=== PATIENT | female | born 1990 | race Caucasian/White ===

== ENCOUNTER 2017-08-10 17:53 | Inpatient (IN) | payer BC ==
[2017-08-10] MEDS ORDERED: Misoprostol 200 MCG Tab PO PRN (18:03)
[2017-08-10] MEDS ORDERED: Sodium Chloride 0.9% 2.5 ML Syringe FLUSH PRN (18:03)
[2017-08-10] MEDS ORDERED: Methylergonovine 0.2 MG/1 ML Amp IM PRN (18:03)
[2017-08-10] MEDS ORDERED: Lidocaine 1% 50 ML MDV INJECT PRN (18:03)
[2017-08-10] MEDS ORDERED: Water For Irrigation,Sterile 1,000 ML Container IRR PRN (18:03)
[2017-08-10] MEDS ORDERED: Nalbuphine 10 MG/1 ML Vial IVPUSH PRN (18:03)
[2017-08-10] MEDS ORDERED: Ampicillin 2 GM in Sodium Chloride 0.9% 100 ML IV ONE (18:03)
[2017-08-10] MEDS ORDERED: Butorphanol 1 MG/ML SDV IVPUSH PRN (18:03)
[2017-08-10] MEDS ORDERED: Sodium Chloride 0.9% 10 ML Syringe FLUSH PRN (18:03)
[2017-08-10] MEDS ORDERED: Carboprost Tromethamine 250 MCG/1 ML Amp IM PRN (18:03)
[2017-08-10] MEDS ORDERED: Misoprostol 25 MCG (1/4 of 100 MCG) Tab VAG PRN (18:08)
[2017-08-10] MEDS ORDERED: Terbutaline 1 MG/ML SDV SUBCUT PRN (18:08)
[2017-08-10] MEDS ORDERED: Misoprostol 25 MCG (1/4 of 100 MCG) Tab VAG SCH (18:15)
[2017-08-10] MEDS ORDERED: Oxytocin/0.9 % Sodium Chloride 30 UNIT/500 ML BAG IV SCH ×3 (18:15→20:45)
[2017-08-10] MEDS: Lactated Ringers 1,000 ML IV SCH (18:23)
[2017-08-10] MEDS: Ampicillin 1 GM in Sodium Chloride 0.9% 50 ML IV SCH (22:27)
[2017-08-11] MEDS: Lactated Ringers 1,000 ML IV SCH ×3 (00:17→02:43)
--- NOTE | 2017-08-11 01:51 | PCM.PREANE ---
Preanesthetic Assessment - Anesthesia/Transfusion/Family Hx Anesthesia History: Prior Anesthesia Without Reaction Family History of Anesthesia Reaction: No Transfusion History: No Prior Transfusion(s) - Review of Systems Other: Reports: None - Physical Assessment Height: 5 ft 7 in Weight: 85.275 kg ASA Class: 2 Mental Status: Alert & Oriented x3 Airway Class: Mallampati = 1 Dentition: Reports: Normal Dentition Thyro-Mental Finger Breadths: 3 Mouth Opening Finger Breadths: 3 ROM/Head Extension: Full - Lab Values: Laboratory Last Values WBC 8.49 K/uL (4.0-11.0) 08/10/17 18:23 RBC 4.02 M/uL (4.30-5.90) L 08/10/17 18:23 Hgb 12.2 g/dL (12.0-16.0) 08/10/17 18:23 Hct 35.6 % (36.0-46.0) L 08/10/17 18:23 MCV 88.6 fL (80.0-98.0) 08/10/17 18:23 MCH 30.3 pg (27.0-32.0) 08/10/17 18:23 MCHC 34.3 g/dL (31.0-37.0) 08/10/17 18:23 RDW Std Deviation 45.3 fl (28.0-62.0) 08/10/17 18:23 RDW Coeff of Trang 14 % (11.0-15.0) 08/10/17 18:23 Plt Count 246 K/uL (150-400) 08/10/17 18:23 MPV 10.00 fL (7.40-12.00) 08/10/17 18:23 Nucleated RBC % 0.0 /100WBC 08/10/17 18:23 Nucleated RBCs # 0 K/uL 08/10/17 18:23 Blood Type O NEGATIVE 08/10/17 18:23 Antibody Screen NEGATIVE 08/10/17 18:23 - Allergies Allergies/Adverse Reactions: Allergies Allergy/AdvReac Type Severity Reaction Status Date / Time cefixime [From Suprax] Allergy Nausea Verified 12/31/14 12:28 - Blood Blood Available: Yes Product(s) Available: PRBC - Acknowledgements Anesthesia Type Planned: Epidural Pt an Appropriate Candidate for the Planned Anesthesia: Yes Alternatives and Risks of Anesthesia Discussed w Pt/Guardian: Yes Pt/Guardian Understands and Agrees with Anesthesia Plan: Yes PreAnesthesia Questionnaire 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 Musculoskeletal Surgical History: Reports: Other (See Below) Other Musculoskeletal Surgeries/Procedures:: Right wrist surgery in 1994. - SUBSTANCE USE Smoking Status *Q: Never Smoker Tobacco Use Within Last Twelve Months: No Second Hand Smoke Exposure: No Recreational Drug Use History: No - CURRENT (IN HOUSE) MEDS Current Meds: Current Medications Butorphanol Tartrate (Stadol) 1 mg IVPUSH Q1H PRN PRN Reason: Pain Carboprost Tromethamine (Hemabate Ds) 250 mcg IM ASDIRECTED PRN PRN Reason: Post Hemorrhage Ampicillin Sodium 1 gm/ Sodium (Chloride) 50 mls @ 100 mls/hr IV Q4H ALEXANDREA Last Admin: 08/10/17 22:27 Dose: 100 mls/hr Lactated Ringer's (Ringers, Lactated) 1,000 mls @ 150 mls/hr IV ASDIRECTED ALEXANDREA Last Admin: 08/11/17 01:25 Dose: 500 mls/hr Oxytocin/Sodium Chloride (Oxytocin 30 Unit/500 Ml-Ns) 30 unit in 500 mls @ 999 mls/hr IV TITRATE ALEXANDREA Oxytocin/Sodium Chloride (Oxytocin 30 Unit/500 Ml-Ns) 30 unit in 500 mls @ 2 mls/hr IV TITRATE ALEXANDREA; 2 MUNITS/MIN PRN Reason: Protocol Oxytocin/Sodium Chloride (Oxytocin 30 Unit/500 Ml-Ns) 30 unit in 500 mls @ 2 mls/hr IV TITRATE ALEXANDREA; 2 MUNITS/MIN PRN Reason: Protocol Lidocaine HCl (Xylocaine 1%) 50 ml INJECT .ONCE PRN PRN Reason: Laceration repair Methylergonovine Maleate (Methergine) 0.2 mg IM ASDIRECTED PRN PRN Reason: Post Hemorrhage Misoprostol (Cytotec) 200 mcg PO .ONCE PRN PRN Reason: Post Hemorrhage Misoprostol (Cytotec) 25 mcg VAG .ONCE ALEXANDREA Misoprostol (Cytotec) 25 mcg VAG Q6HR PRN PRN Reason: Cervical Ripening Nalbuphine HCl (Nubain) 10 mg IVPUSH Q1H PRN PRN Reason: Pain (severe 7-10) Sodium Chloride (Saline Flush) 10 ml FLUSH ASDIRECTED PRN PRN Reason: Keep Vein Open Sodium Chloride (Saline Flush) 2.5 ml FLUSH ASDIRECTED PRN PRN Reason: Keep Vein Open Sterile Water (Sterile Water For Irrigation) 1,000 ml IRR ASDIRECTED PRN PRN Reason: delivery Terbutaline Sulfate (Brethine) 0.25 mg SUBCUT ASDIRECTED PRN PRN Reason: Tacysystole Discontinued Medications Ampicillin Sodium 2 gm/ Sodium (Chloride) 100 mls @ 200 mls/hr IV ONETIME ONE Stop: 08/10/17 18:32 Last Admin: 08/10/17 18:37 Dose: 200 mls/hr
[2017-08-11] MEDS ORDERED: Ropivacaine 0.2% 2 MG/ML 20 ML SDV ONE (01:52)
[2017-08-11] MEDS ORDERED: fentaNYL 100 MCG/2 ML SDV ONE (01:52)
[2017-08-11] MEDS ORDERED: Ropivacaine HCl/PF 100 ML ONE (01:52)
[2017-08-11] MEDS: Ampicillin 1 GM in Sodium Chloride 0.9% 50 ML IV SCH ×2 (02:00→06:12)
[2017-08-11] MEDS ORDERED: Ibuprofen 800 MG Tab PO PRN (07:44)
[2017-08-11] MEDS ORDERED: Lanolin 100% Cream 7 GM Tube TOP PRN (07:44)
[2017-08-11] MEDS ORDERED: Ibuprofen 400 MG Tab PO PRN (07:44)
[2017-08-11] MEDS ORDERED: Witch Hazel Medicated Pads 40/Jar TOP PRN (07:44)
[2017-08-11] MEDS ORDERED: oxyCODONE 5 MG Tab PO PRN (07:44)
[2017-08-11] MEDS ORDERED: Bisacodyl 10 MG Supp RECTAL PRN (07:44)
[2017-08-11] MEDS ORDERED: Docusate Sodium 100 MG Cap PO PRN (07:44)
[2017-08-11] MEDS ORDERED: Benzocaine/Menthol 20%-0.5% Spray 78 GM Cannister TOP PRN (07:44)
[2017-08-11] MEDS ORDERED: Acetaminophen 500 MG Tab PO PRN ×2 (07:44)
--- NOTE | 2017-08-11 12:47 | OR ---
SURGEON: ANIGE SORTO DATE OF PROCEDURE: 08/11/2017 PREOPERATIVE DIAGNOSIS: A 27-year-old, G1, P0, at 41 weeks 2 days, admitted with SROM, GBS positive. POSTOPERATIVE DIAGNOSIS: Status post normal vaginal delivery. EBL: 300. FINDINGS: A live female , delivered at 6:55 a.m, weight 3120g . score was 9 and 10. First- degree perineal laceration and bilateral labial laceration that was repaired with Polysorb 4-0. The placenta had a three vessel cord. BRIEF HISTORY: She is a 27-year-old 1, para 0. She was 41 weeks 2 day .she came to the Labor and Delivery at around 5:30 p.m complaining of leakage of fluid and some mild contractions. The patient was examined and was found to be 3, 60, -2. The patient was having contractions on her own and progressed to 5 to 6, 90, 0 at around 2:30 a.m. She was started on Pitocin. The patient made change to 8, 100, 1 at 5:15 a.m. and fully dilated at 6:15 a.m. The patient was encouraged to push. The patient had good pushing effort and a live female was delivered at 6:55 a.m. score was 9 and 10. First-degree perineal laceration was repaired with the bilateral labial laceration. PROCEDURE DETAILS: With the patient's pushing effort, the head was delivered. Subsequently, after the head was delivered, the shoulder was allowed to restitute. The anterior shoulder was delivered followed by the posterior shoulder, then body of the baby was then delivered. The baby was handed over on top of the mother for skin to skin. Delayed cord clamping was observed about 45 seconds. The cord was then clamped, cut, and the placenta was then allowed to separateconfirmed by a gush of blood. The placenta was delivered via controlled cord traction and inspected and found to be intact with three-vessel cord noted also. The perineum was inspected and was found to have a first-degree perineal laceration and bilateral labial laceration, the laceration was repaired with Polysorb. After repair, the perineum was again inspected and found to be hemostatic. All instrument and pad counts were correct x2. Dr. Sorto was present for the entire procedure. AYO ROJAS /[id number] ELVIN
--- NOTE | 2017-08-11 18:10 | PCM48HPAN ---
Post Anesthesia Note - EVALUATION WITHIN 48HRS OF ANESTHETIC Vital Signs in Normal Range: Yes Patient Participated in Evaluation: Yes Respiratory Function Stable: Yes Airway Patent: Yes Cardiovascular Function Stable: Yes Hydration Status Stable: Yes Pain Control Satisfactory: Yes Nausea and Vomiting Control Satisfactory: Yes Mental Status Recovered: Yes
--- NOTE | 2017-08-12 07:34 | PCM.PNPP ---
- General Info Date of Service: 08/12/17 Functional Status: Reports: Pain Controlled, Tolerating Diet, Ambulating, Urinating (baby has not voided yet. Patient is concerned) - Review of Systems General: Reports: No Symptoms HEENT: Reports: No Symptoms Pulmonary: Reports: No Symptoms Cardiovascular: Reports: No Symptoms Gastrointestinal: Reports: No Symptoms Genitourinary: Reports: No Symptoms Musculoskeletal: Reports: No Symptoms Skin: Reports: No Symptoms Neurological: Reports: No Symptoms Psychiatric: Reports: No Symptoms - Patient Data Vital Signs - Most Recent: Last Vital Signs Temp 36.8 C 08/12/17 04:00 Pulse 69 08/12/17 04:00 Resp 16 08/12/17 04:00 BP 128/75 08/12/17 04:00 Pulse Ox 95 08/12/17 04:00 Weight - Most Recent: 85.275 kg Lab Results - Last 24 Hours: Laboratory Results - last 24 hr 08/11/17 08/12/17 Range/Units 09:11 05:11 Hgb 10.9 L (12.0-16.0) g/dL Hct 32.5 L (36.0-46.0) % Screen NEGATIVE (NEGATIVE) RhIG Candidate? YES Rhogam Indicated YES, BABY RH POS H Med Orders - Current: Current Medications Acetaminophen (Tylenol Extra Strength) 500 mg PO Q4H PRN PRN Reason: Pain Acetaminophen (Tylenol Extra Strength) 1,000 mg PO Q4H PRN PRN Reason: Pain Benzocaine/Menthol (Dermoplast Pain Relief 20%-0.5% [place]) 78 gm TOP ASDIRECTED PRN PRN Reason: Perineal Comfort Measure Last Admin: 08/11/17 08:03 Dose: 1 canister Bisacodyl (Dulcolax) 10 mg RECTAL .ONCE PRN PRN Reason: Constipation Docusate Sodium (Colace) 100 mg PO BID PRN PRN Reason: Constipation Emollient Ointment (Lansinoh Hpa) 0 gm TOP ASDIRECTED PRN PRN Reason: Sore Nipples Last Admin: 08/11/17 08:03 Dose: 1 applicful Ibuprofen (Motrin) 400 mg PO Q4H PRN PRN Reason: Pain Ibuprofen (Motrin) 800 mg PO Q6H PRN PRN Reason: Pain Last Admin: 08/11/17 23:04 Dose: 800 mg Oxycodone HCl (Oxycodone) 5 mg PO Q2H PRN PRN Reason: Pain Witch An (Tucks) 1 pad TOP ASDIRECTED PRN PRN Reason: comfort care Last Admin: 08/11/17 08:03 Dose: 1 tub Discontinued Medications Butorphanol Tartrate (Stadol) 1 mg IVPUSH Q1H PRN PRN Reason: Pain Carboprost Tromethamine (Hemabate Ds) 250 mcg IM ASDIRECTED PRN PRN Reason: Post Hemorrhage Fentanyl (Sublimaze) Confirm Administered Dose 200 mcg .ROUTE .[employer]MED ONE Stop: 08/11/17 01:53 Ampicillin Sodium 2 gm/ Sodium (Chloride) 100 mls @ 200 mls/hr IV ONETIME ONE Stop: 08/10/17 18:32 Last Admin: 08/10/17 18:37 Dose: 200 mls/hr Ampicillin Sodium 1 gm/ Sodium (Chloride) 50 mls @ 100 mls/hr IV Q4H ALEXANDREA Last Admin: 08/11/17 06:12 Dose: 100 mls/hr Lactated Ringer's (Ringers, Lactated) 1,000 mls @ 150 mls/hr IV ASDIRECTED ALEXANDREA Last Admin: 08/11/17 02:43 Dose: 150 mls/hr Oxytocin/Sodium Chloride (Oxytocin 30 Unit/500 Ml-Ns) 30 unit in 500 mls @ 999 mls/hr IV TITRATE ALEXANDREA Oxytocin/Sodium Chloride (Oxytocin 30 Unit/500 Ml-Ns) 30 unit in 500 mls @ 2 mls/hr IV TITRATE ALEXANDREA; 2 MUNITS/MIN PRN Reason: Protocol Last Titration: 08/11/17 06:20 Dose: 0 munits/min, 0 mls/hr Oxytocin/Sodium Chloride (Oxytocin 30 Unit/500 Ml-Ns) 30 unit in 500 mls @ 2 mls/hr IV TITRATE ALEXANDREA; 2 MUNITS/MIN PRN Reason: Protocol Ropivacaine (Naropin 0.2%) Confirm Administered Dose 100 mls @ as directed .ROUTE .STK-MED ONE Stop: 08/11/17 01:53 Lidocaine HCl (Xylocaine 1%) 50 ml INJECT .ONCE PRN PRN Reason: Laceration repair Methylergonovine Maleate (Methergine) 0.2 mg IM ASDIRECTED PRN PRN Reason: Post Hemorrhage Misoprostol (Cytotec) 200 mcg PO .ONCE PRN PRN Reason: Post Hemorrhage Misoprostol (Cytotec) 25 mcg VAG .ONCE ALEXANDREA Misoprostol (Cytotec) 25 mcg VAG Q6HR PRN PRN Reason: Cervical Ripening Nalbuphine HCl (Nubain) 10 mg IVPUSH Q1H PRN PRN Reason: Pain (severe 7-10) Ropivacaine (Naropin 0.2%) Confirm Administered Dose 20 ml .ROUTE .[facility]-MED ONE Stop: 08/11/17 01:53 Sodium Chloride (Saline Flush) 10 ml FLUSH ASDIRECTED PRN PRN Reason: Keep Vein Open Sodium Chloride (Saline Flush) 2.5 ml FLUSH ASDIRECTED PRN PRN Reason: Keep Vein Open Sterile Water (Sterile Water For Irrigation) 1,000 ml IRR ASDIRECTED PRN PRN Reason: delivery Terbutaline Sulfate (Brethine) 0.25 mg SUBCUT ASDIRECTED PRN PRN Reason: Tacysystole - Interaction Infant Disposition, : [place] at Bedside Infant Feeding: Breastfed ; Nursed Well Support Person: - Recovery Exam Fundal Tone: Firm Fundal Level: At Umbilicus Fundal Placement: Midline Lochia Amount: Scant Lochia Color: Rubra/Red Perineum Description: Intact, Minimal Bruising/Swelling Episiotomy/Laceration: Approximated Bladder Status: Voiding - Exam General: Alert, Oriented HEENT: Pupils Equal Neck: Supple Lungs: Normal Respiratory Effort GI/Abdominal Exam: Soft, Non-Tender, No Distention Extremities: Normal Inspection, Normal Range of Motion, Non-Tender, No Pedal Edema, Normal Capillary Refill Skin: Warm, Dry, Intact Neurological: No New Focal Deficit Psy/Mental Status: Alert, Normal Affect, Normal Mood - Problem List Review Problem List Initiated/Reviewed/Updated: Yes - My Orders Last 24 Hours: My Active Orders 08/11/17 09:11 SCREEN [BBK] Routine RH IMMUNE GLOBULIN [BBK] Routine RHOGAM, [RHIG WORKUP, ] [BBK] Routine - Assessment Assessment:: PPD#1 after , pain well controlled, minimal lochia, well, planning consultation today. - Plan Plan:: Dismiss to home today, discharge instruction reviewed
== END 2017-08-12 13:55 | disposition home or self-care (01) | DRG 560 ==
LOC: MW.OBCHECK 17:53 → MW.OB 17:57 → MW.OBCHECK 18:02 → MW.OB 18:03 → OBSVTOIN 08-11 06:55
PROVIDERS: ADMIT Obstetrics & Gynecology; ATTEND Obstetrics & Gynecology
PROC: 10E0XZZ Delivery of Products of Conception, External Approach (ICD-10-PCS; principal; 2017-08-11)
PROC: 0HQ9XZZ Repair Perineum Skin, External Approach (ICD-10-PCS; 2017-08-11)
DX: O42.02 Full-term premature rupture of membranes, onset of labor within 24 hours of rupture (principal); O70.0 First degree perineal laceration during delivery; Z3A.41 41 weeks gestation of pregnancy; Z37.0 Single live birth
CPT/HCPCS: 36415; 51702; 59025; 59409; 85014; 85018; 85027; 85460; 86850; 86900; 86901; A9270-GY; J0290; J2590; J2790; J2795; J3010; J7030; J7050; J7120